=== PATIENT | male | born 1980 | race Caucasian/White ===

== ENCOUNTER 2016-11-04 10:10 | Emergency (ER) | payer SELFPAY ==
[~2016-11-04] VITALS: Ht 190.5 cm; Wt 100.0 kg
[2016-11-04 10:12] VITALS: BP 146/88; PULSE 102; RESP 14; TEMP 98.2; O2SAT 99
--- NOTE | 2016-11-04 10:26 | PD ---
HPI Chief Complaint: Oral / Dental Pain or Problem Time Seen by Provider: 10:25 Travel History International Travel<30 days: No Contact w/Intl Traveler<30days: No Traveled to known affect area: No History of Present Illness HPI 36-year-old male presents to the emergency Department with complaint of left upper tooth pain 1 month after his tooth cracked with worsening over the past few days. Denies fever, vomiting. Denies facial edema erythema. Has been taking ibuprofen for symptom management. Used an lamb-fdl-fibchdy compound to put in his tooth where it is cracked. Has no other medical complaints. No known allergies. No other modifying factors or associated signs and symptoms. PFSH Social History Tobacco Use: Yes Allergies-Medications (Allergen,Severity, Reaction): Coded Allergies: No Known Allergies (Unverified , 11/04/16) Reported Meds & Prescriptions Reported Meds & Active Scripts Active Peridex Liq (Chlorhexidine Gluconate (Mouth) Liq) 0.12% Soln 15 Ml SWISH-SPIT BID 10 Days Amoxicillin 500 Mg Cap 500 Mg PO BID 10 Days Ibuprofen 800 Mg Tab 800 Mg PO Q6HR PRN Reported Buspirone (Buspirone HCl) 15 Mg Tab 15 Mg PO TID Wellbutrin Xl 24 HR (Bupropion HCl) 150 Mg Tab 150 Mg PO DAILY Review of Systems Except as stated in HPI: all other systems reviewed are Neg Physical Exam Narrative GENERAL: Well-nourished, well-developed male patient, in no acute distress; afebrile, nontoxic-appearing SKIN: Warm and dry. HEAD: Atraumatic. Normocephalic. No facial edema, erythema, tenderness on palpation. No lymphadenopathy. EYES: Pupils equal and round. No scleral icterus. No injection or drainage. ENT: Mucosa pink and moist. Airway patent. MOUTH: Poor dentition throughout. Mucous membranes moist, no lesions, tongue and gums appear normal. Tooth #12, 13, 14 with multiple dental cavities and tenderness on palpation. Surrounding gingiva is without erythema, edema, drainage. No obvious abscess noted. NECK: Trachea midline. No lymphadenopathy. CARDIOVASCULAR: Regular rate. RESPIRATORY: No accessory muscle use. GASTROINTESTINAL: Rounded. MUSCULOSKELETAL: No obvious deformities. No clubbing. No cyanosis. No edema. NEUROLOGICAL: Awake and alert. Oriented 3. No obvious cranial nerve deficits. Motor grossly within normal limits. Normal speech. PSYCHIATRIC: Appropriate mood and affect; insight and judgment normal. Data Data Last Documented VS Vital Signs Date Time Temp Pulse Resp B/P Pulse Ox O2 Delivery O2 Flow Rate FiO2 11/04/16 10:12 98.2 102 14 146/88 99 MDM Medical Decision Making Medical Screen Exam Complete: Yes Emergency Medical Condition: Yes Medical Record Reviewed: Yes Differential Diagnosis Dentalgia, infected dental Disease, dental abscess Narrative Course 36-year-old male physical exam consistent with dentalgia and dental cavities to left upper tooth #12, 13, 14. Patient has poor dentition throughout. No facial edema or erythema. Patient is afebrile and nontoxic-appearing. Denies fever, vomiting. Emergency information dental sheet provided for outpatient follow-up. Amoxicillin, ibuprofen, Peridex mouth rinse prescribed for home. Instructed patient to follow up with dentist. Patient verbalizes understanding and agreement with treatment plan. Patient is medically cleared and stable for discharge. Discussed reasons to return to the emergency department. Instructed patient to follow up with primary care provider. Patient agrees with treatment plan. The patients vital signs are stable and the patient is stable for outpatient follow-up and treatment. Patient discharged home, stable and in no acute distress. Diagnosis Primary Impression: Dentalgia Additional Impression: Dental cavities Referrals: Dentist Primary Care Physician Patient Instructions: Acute Dental Trauma (ED), Dental Abscess (ED), Dental Caries (ED), General Instructions, Toothache (ED) Departure Forms: Tests/Procedures, Work Release Enter return to work date: Nov 04, 2016 Additional Instructions: Complete full course of antibiotics Ibuprofen or Tylenol as directed and as needed to reduce pain and inflammation Warm or cool compresses to the affected area Follow-up with dentist Follow-up with primary care provider Return to emergency department immediately with worsening of symptoms Med/Other Pt SpecificInfo: Prescription(s) given Scripts Chlorhexidine Gluconate (Mouth) Liq (Peridex Liq)0.12% Soln15 Ml SWISH-SPIT BID 10 Days Ref 0 Prov:Paris Joe PUBLISHING MANAGER 11/04/16 Amoxicillin 500 Mg [id number] Mg PO BID 10 Days Ref 0 Prov:Paris Joe PUBLISHING MANAGER 11/04/16 Ibuprofen 800 Mg [id number] Mg PO Q6HR PRN (PAIN) #30 TAB Ref 0 Prov:Paris Joe CARO 11/04/16 Disposition: 01 DISCHARGE HOME Condition: Stable Paris Joe Nov 04, 2016 10:26
[2016-11-04] MEDS ORDERED: BUSP15TA PO (10:27)
[2016-11-04] MEDS ORDERED: BUPR150XL PO (10:27)
[2016-11-04] MEDS ORDERED: PERI0.126 SWISH-SPIT (10:29)
[2016-11-04] MEDS ORDERED: IBUP800T23 PO (10:29)
[2016-11-04] MEDS ORDERED: AMOX500C PO (10:29)
== END 2016-11-04 11:00 | disposition home or self-care (01) ==
LOC: NEPK 10:10
DX: K08.89 Other specified disorders of teeth and supporting structures (principal); K02.9 Dental caries, unspecified; Z72.0 Tobacco use
CPT/HCPCS: 99283

== ENCOUNTER 2016-11-14 11:12 | Emergency (ER) | payer SELFPAY ==
[~2016-11-14] VITALS: Ht 190.5 cm; Wt 105.0 kg
[~2016-11-14 11:12] MED LIST: AMOX500C PO; BUPR150XL PO; BUSP15TA PO; IBUP800T23 PO; PERI0.126 SWISH-SPIT
[2016-11-14 11:14] VITALS: BP 152/82; PULSE 90; RESP 16; TEMP 97.9; O2SAT 97
[2016-11-14] MEDS ORDERED: GABA100C4 PO (11:37)
[2016-11-14] MEDS ORDERED: IBUP800T23 PO (11:39)
[2016-11-14] MEDS ORDERED: AMOX875T PO (11:39)
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
[2016-11-14] MEDS ORDERED: IBUPROFEN 800 MG TAB PO ONE (11:45)
[2016-11-14] MEDS ORDERED: AMOXICILLIN 875 MG TAB PO ONE (11:45)
== END 2016-11-14 12:02 | disposition home or self-care (01) ==
LOC: NEPD 11:12
DX: H66.91 Otitis media, unspecified, right ear (principal); Z72.0 Tobacco use
CPT/HCPCS: 99283

== ENCOUNTER 2016-12-12 05:11 | Emergency (ER) | payer SELFPAY ==
[~2016-12-12] VITALS: Ht 193 cm; Wt 108.0 kg
[~2016-12-12 05:11] MED LIST changes: -AMOX500C PO; +AMOX875T PO; +GABA100C4 PO; -PERI0.126 SWISH-SPIT
[2016-12-12 05:13] VITALS: BP 143/99; PULSE 70; RESP 15; TEMP 98.5; O2SAT 98
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
[2016-12-12] MEDS ORDERED: CIPR0.3S RIGHT EAR (05:28)
[2016-12-12] MEDS ORDERED: IBUP800T23 PO (05:28)
== END 2016-12-12 05:35 | disposition home or self-care (01) ==
LOC: NEPD 05:11
DX: H60.91 Unspecified otitis externa, right ear (principal); F17.210 Nicotine dependence, cigarettes, uncomplicated
CPT/HCPCS: 99283

== ENCOUNTER 2017-05-14 17:39 | Emergency (ER) | payer SELFPAY ==
[~2017-05-14 17:39] MED LIST changes: +CIPR0.3S RIGHT EAR; +IBUP1TAB7 PO; -IBUP800T23 PO
[2017-05-14 17:44] VITALS: BP 145/88; PULSE 77; RESP 15; TEMP 98.3; O2SAT 98
[2017-05-14] MEDS ORDERED: KETOROLAC TROMETHAMINE 30 MG/ML (IVP) VIAL IV PUSH ONE (19:00)
[2017-05-14] MEDS ORDERED: ONDANSETRON HCL 4 MG/2 ML VIAL IV PUSH ONE (19:00)
[2017-05-14] MEDS ORDERED: CLINDAMYCIN INJ 600 MG in SODIUM CHLORIDE 0.9% INJ 100 ML IV ONE (19:00)
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
[2017-05-14 20:12] LABS: AUTOMATED NEUTROPHIL # 4.9 TH/MM3 (1.8-7.7); BASOPHIL % 0.5 % (0.0-2.0); EOSINOPHIL # 0.2 TH/MM3 (0-0.4); EOSINOPHIL % 2.1 % (0.0-4.0); HEMATOCRIT 49.9 % (39.0-51.0); LYMPH % 28.7 % (9.0-44.0); LYMPHOCYTE # 2.3 TH/MM3 (1.0-4.8); MEAN CELL VOLUME 91.4 FL (80.0-100.0); MEAN CORPUSCULAR HEMOGLOBIN 31.2 PG (27.0-34.0); MEAN CORPUSCULAR HGB CONC 34.2 % (32.0-36.0); MEAN PLATELET VOLUME 9.1 FL (7.0-11.0); MONO % 7.6 % (0.0-8.0); MONOCYTE # 0.6 TH/MM3 (0-0.9); NEUT % 61.1 % (16.0-70.0); PLATELET COUNT 220 TH/MM3 (150-450); RED BLOOD COUNT 5.46 MIL/MM3 (4.50-5.90); RED CELL DISTRIBUTION WIDTH 12.8 % (11.6-17.2)
[2017-05-14] MEDS ORDERED: IOHEXOL 350 MG/ML 10 ML VIAL (for RAD DIAG) IVCONTRAST ONE (20:54)
[2017-05-14 21:17] LABS: BICARBONATE 28.1 MEQ/L (21.0-32.0); CALCIUM 8.3 MG/DL (8.5-10.1); CREATININE 1.29 MG/DL (0.60-1.30)
--- NOTE | 2017-05-14 21:19 | RADRPT ---
EXAM DATE/TIME: 05/14/2017 20:46 [place] COMPARISON: No previous studies available for comparison. INDICATIONS : Right neck and ear pain. Tooth extraction two days ago. Ear pain and discharge for a week. IV CONTRAST: 70 cc Omnipaque 350 (iohexol) IV RADIATION DOSE: 16.61 CTDIvol (mGy) MEDICAL HISTORY : Hepatitis C. SURGICAL HISTORY : None. ENCOUNTER: Initial ACUITY: 1 week PAIN SCALE: 8/10 LOCATION: Right neck TECHNIQUE: Volumetric scanning of the neck was performed. Using automated exposure control and adjustment of th e mA and/or kV according to patient size, radiation dose was kept as low as reasonably achievable to obtain optimal diagnostic quality images. DICOM format image data is available electronically for r eview and comparison. FINDINGS: The defect in the posterior right mandible at site of presumed molar extraction. No acute bony findin gs are otherwise identified. There is mild induration and rodger enlargement in the right submandibular region, presumably reactive to the underlying dental disease. No evidence of suspicious mass or collection. The neck is elsewhere benign and unremarkable. The visualized brain orbitofacial structures are otherwise normal. The upper airway is symmetric and intact. The thyroid is normal for CT appearance. The supraclavicular regions and lung apices are soraida r. CONCLUSION: Mild induration and rodger enlargement the right submandibular region presumably reactive to the under lying dental disease. No other acute findings. Randolph Choi MD on May 14, 2017 at 21:13 Board Certified Radiologist. This report was verified electronically.
[2017-05-14] MEDS ORDERED: CLIN150C14 PO (22:00)
[2017-05-14] MEDS ORDERED: CIPR0.3S RIGHT EAR (22:00)
[2017-05-14] MEDS ORDERED: ACET-822 PO (22:00)
== END 2017-05-14 22:24 | disposition home or self-care (01) ==
LOC: NEPD 17:39
DX: L03.211 Cellulitis of face (principal); H60.501 Unspecified acute noninfective otitis externa, right ear
CPT/HCPCS: 70491; 80048; 85025; 96365; 96366; 96375; 99284; J1885; J2405; Q9967

== ENCOUNTER 2017-08-03 17:09 | Emergency (ER) | payer SELFPAY ==
[~2017-08-03 17:09] MED LIST changes: +ACET-822 PO; -AMOX875T PO; +CLIN150C14 PO; -IBUP1TAB7 PO
[2017-08-03 17:21] VITALS: BP 155/87; PULSE 88; RESP 18; TEMP 97.6; O2SAT 96
[2017-08-03] MEDS ORDERED: AZITHROMYCIN 250 MG TAB PO ONE (18:00)
[2017-08-03] MEDS ORDERED: LIDOCAINE HCL 1% 50 ML VIAL XX ONE (18:00)
[2017-08-03] MEDS ORDERED: DOXYCYCLINE HYCLATE 100 MG TAB PO ONE (18:00)
[2017-08-03] MEDS ORDERED: LIDOCAINE HCL 1% PF 30 ML VIAL INFIL ONE (18:00)
[2017-08-03] MEDS ORDERED: cefTRIAXone 250 MG VIAL IM ONE (18:00)
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
[2017-08-03] MEDS ORDERED: DOXY100C PO (18:26)
[2017-08-03 18:41] LABS: BILIRUBIN, URINE NEG (NEG); BLOOD, URINE NEG (NEG); GLUCOSE,URINE NEG (NEG); KETONE, URINE NEG (NEG); MUCUS URINE FEW /lpf (OCC); NITRITE,URINE NEG (NEG); PH, URINE 5.5 (5.0-8.5); URINE COLOR YELLOW (YELLW/STRAW); URINE LEUKOCYTE ESTERASE LARGE (NEG)
[2017-08-03] MEDS ORDERED: BACT800T5 PO (18:59)
== END 2017-08-03 19:28 | disposition home or self-care (01) ==
LOC: NED 17:09 → NEPK 19:28
DX: R36.9 Urethral discharge, unspecified (principal); N39.0 Urinary tract infection, site not specified; F41.9 Anxiety disorder, unspecified; F32.9 Major depressive disorder, single episode, unspecified; Z20.2 Contact with and (suspected) exposure to infections with a predominantly sexual mode of transmission; Z79.899 Other long term (current) drug therapy
CPT/HCPCS: 81001; 87086; 87491; 87591; 96372; 99283; J0696